=== PATIENT | female | born 1955 | race African-American/Black ===

== ENCOUNTER 2020-03-14 11:53 | Emergency (ER) | payer MEDICARE, OTHER ==
[~2020-03-14] VITALS: Ht 172.7 cm; Wt 156.0 kg
[~2020-03-14 11:53] MED LIST: AMLO-187 PO; ASPI-886 PO; ATOR40TA59 PO; CELE200C PO; GLIP5TAB22 PO; HYDR-2145 PO; HYDR-2761 PO; LOSA100T14 PO; METF10007 PO; SERT50TA PO; TRAM50TA PO; VENTOLIN HFA18 GM INH
[2020-03-14 12:08] VITALS: BP 134/94
--- NOTE | 2020-03-14 12:41 | ED.ADGEN ---
Past Medical History Past Medical History: Hypertension Past Surgical History: No Surgical History Smoking Status: Never Smoker Alcohol Use: None General Adult EDM: Chief Complaint: MULTIPLE COMPLAINTS HPI: HPI: Patient is a 64 year old AA female who presents emergency department with complaints of pain in her right wrist after catching herself from falling 2 days ago. Patient states that her wrist has been very sore. She reports today it feels more stiff than it has over the last 2 days. Patient denies any numbness, tingling, or weakness. She reports that earlier today she had episode of hypoglycemia that she had to take glucose tablets for. Patient denies any chest pain, shortness of breath, nausea, vomiting, diarrhea, abdominal pain, body aches, or fatigue. She states when her blood sugar was low she began to sweat all over and felt extremely nauseated but states that those symptoms completely resolved after she took the glucose tabs followed by her breakfast. She currently rates the pain in her wrist a 9 out of 10 on the pain scale, patient reports she took 2 tramadol at home this morning that seemed to help just a little. She reports that the pain increases with movement and palpation. Review of Systems: Review of Systems: Complete ROS is negative unless otherwise noted in HPI. Allergies: Allergies: Allergies Coded Allergies Type Severity Reaction Last Updated Verified gentamicin Adverse Reaction Intermediate Rash 11/20/18 Yes Physical Exam: PE: See Above Constitutional: Well developed, well nourished, no acute distress, non-toxic appearance, obese [] HENT: Normocephalic, atraumatic, bilateral external ears normal, nose normal. [] Eyes: PERRLA, EOMI, conjunctiva normal, no discharge. [] Neck: Normal range of motion, no stridor. [] Cardiovascular:Heart rate regular rhythm Lungs & Thorax: Respirations even and unlabored, no retractions, no respiratory distress Abdomen: soft, no tenderness Skin: Warm, dry, no erythema, no rash. [] Extremities: Right wrist: Diffuse tenderness to palpation, no crepitus, no obvious deformity, 1+ edema ,no cyanosis, ROM intact, 2+ radial pulse Neurologic: Alert and oriented X 3, no focal deficits noted. [] Psychologic: Affect normal, judgement normal, mood normal. [] Current Patient Data: Labs: Laboratory Tests Test 03/14/20 12:43 Glucose (Fingerstick) 104 mg/dL (70-99) H Vital Signs: Vital Signs Date Time Temp Pulse Resp B/P (MAP) Pulse Ox O2 Delivery O2 Flow Rate FiO2 03/14/20 12:08 97.9 89 18 134/94 (107) 98 Room Air 97.9 EKG: EKG: [] Heart Score: Risk Factors: Risk Factors: DM, Current or recent (<one month) smoker, HTN, HLP, family history of CAD, obesity. Risk Scores: Score 0 - 3: 2.5% MACE over next 6 weeks - Discharge Home Score 4 - 6: 20.3% MACE over next 6 weeks - Admit for Clinical Observation Score 7 - 10: 72.7% MACE over next 6 weeks - Early Invasive Strategies Radiology/Procedures: Radiology/Procedures: PROCEDURE: WRIST 3V RIGHT Right wrist 3 views 03/14/2020. Reason for exam: Pain after falling 2 days ago. FINDINGS: No fracture or dislocation is seen. There is widening of the scapholunate space. This could indicate ligamentous injury, but is of uncertain age. There is no obvious soft tissue swelling. IMPRESSION: No acute bony abnormality. There is widened scapholunate space.[] I have reviewed the PA/PROJECT TECHNICIAN's note and Plan of Care. I was available for consultation as needed during the patient's visit in the emergency department. I agree with the clinical impression, plans and disposition. Course & Med Decision Making: Course & Med Decision Making Pertinent Labs and Imaging studies reviewed. (See chart for details) 64-year-old female presented to the emergency room with complaints of right wrist pain after catching herself from falling a couple of days ago. X-ray was negative for any acute fracture however there was widening at the scapholunate space. The patient was placed in a sugar tong splint and a sling. She is provided with Dr. Yan's information for follow-up. Instructed the patient to continue taking her tramadol at home as needed for relief of the pain. She can also take Tylenol or ibuprofen. Recommend application of ice for 10 to 15 minutes as needed for relief of pain and swelling. Return to the ER if symptoms worsen. Patient verbalized an understanding of home care, medications, follow-up, and return to ED instructions and was in agreement with the plan of care. [] Dragon Disclaimer: Dragon Disclaimer: This electronic medical record was generated, in whole or in part, using a voice recognition dictation system. Departure Departure Impression: Primary Impression: Acute pain of right wrist Additional Impression: Right wrist injury Disposition: 01 DC HOME SELF CARE/HOMELESS Condition: STABLE Referrals: SERGEI YAN MD Patient Instructions: Wrist Pain, [id number] Additional Instructions: Continue taking your tramadol as needed for pain, you may also take Tylenol or ibuprofen as needed for pain.. Recommend application of ice, elevation, and rest of affected extremity. Wear the splint and sling that was placed until follow up appointment with Dr. Yan, call in the morning for an appointment. Return to the ER if your symptoms worsen. Splinting Splinting : Location: [facility] Hand-Made Type: orthoglass Splint: sugar-tong Pre-Proc Neuro Vasc Exam: normal Post-Proc Neuro Vasc Exam: normal, unchanged from pre-exam Progress pt tolerated procedure well, reports relief after splint application. Problem Qualifiers Additional Impression: Right wrist injury Encounter type: initial encounter Qualified Codes: S69.91XA - Unspecified injury of right wrist, hand and finger(s), initial encounter STEPHAINE VELEZ APRN Mar 14, 2020 12:40 YEFRI ARECHIGA MD Mar 14, 2020 14:12
--- NOTE | 2020-03-14 12:43 | RAD ---
Right wrist 3 views 03/14/2020. Reason for exam: Pain after falling 2 days ago. FINDINGS: No fracture or dislocation is seen. There is widening of the scapholunate space. This could indicate ligamentous injury, but is of uncertain age. There is no obvious soft tissue swelling. IMPRESSION: No acute bony abnormality. There is widened scapholunate space. Electronically signed by: Raúl Ortiz Jr., MD (03/14/2020 12:40 PM) [facility]
== END 2020-03-14 14:17 | disposition home or self-care (01) ==
LOC: ER 11:53
DX: M25.531 Pain in right wrist (principal); R11.0 Nausea; R60.0 Localized edema; I10 Essential (primary) hypertension; Z88.1 Allergy status to other antibiotic agents
CPT/HCPCS: 29125; 73110; 82962; 99284; A4565